=== PATIENT | female | born 1990 | race Caucasian/White ===

== ENCOUNTER → 2016-12-05 | Outpatient (REF) ==
[~2016-12-05] MED LIST: FERROUS SULFAT325 MG PO; IBU600 MG PO; PERCOCET 325 MG1 TA2 PO; PRENATAL VITAMI1 TA5 PO; VISTARIL50 MG PO
== END ==
LOC: WSOH 09:49
DX: Z01.89 Encounter for other specified special examinations (principal)
CPT/HCPCS: G0463

== ENCOUNTER 2017-10-16 22:56 | Emergency (ER) | payer OTHER ==
[~2017-10-16] VITALS: Ht 162.6 cm; Wt 70.5 kg
[2017-10-16 23:01] VITALS: BP 138/81; PULSE 131; TEMP 97.4
[2017-10-17] MEDS ORDERED: OMNICEF 300MG300 MG PO (01:15)
[2017-10-17] MEDS ORDERED: NORCO 325 MG-51 TAB PO (01:15)
== END 2017-10-17 01:45 | disposition home or self-care (01) ==
LOC: COL.ER 22:56
DX: S31.119A Laceration without foreign body of abdominal wall, unspecified quadrant without penetration into peritoneal cavity, initial encounter (principal); F17.210 Nicotine dependence, cigarettes, uncomplicated; Z23 Encounter for immunization; W26.8XXA Contact with other sharp object(s), not elsewhere classified, initial encounter; Y92.009 Unspecified place in unspecified non-institutional (private) residence as the place of occurrence of the external cause

== ENCOUNTER 2017-10-28 18:52 | Emergency (ER) | payer OTHER ==
[~2017-10-28 18:52] MED LIST changes: +NORCO 325 MG-51 TAB PO; +OMNICEF 300MG300 MG PO
[2017-10-28 19:00] VITALS: BP 118/75; PULSE 94; TEMP 99.1
== END 2017-10-28 19:04 | disposition home or self-care (01) ==
LOC: COL.ER 18:52
DX: S31.119D Laceration without foreign body of abdominal wall, unspecified quadrant without penetration into peritoneal cavity, subsequent encounter (principal); X58.XXXD Exposure to other specified factors, subsequent encounter

== ENCOUNTER → 2019-07-27 | Outpatient (CLI) | payer OTHER | LOC: MHCPAIN 08:50 | DX: M79.18 Myalgia, other site (principal) | CPT/HCPCS: G0463 ==

== ENCOUNTER → 2019-08-02 | Outpatient (CLI) | payer OTHER | LOC: MHCPAIN 08:17 | DX: M79.18 Myalgia, other site (principal) | CPT/HCPCS: J1040 ==

== ENCOUNTER → 2020-01-11 | Outpatient (CLI) | payer OTHER | LOC: MHCPAIN 15:12 | DX: M25.512 Pain in left shoulder (principal); M54.6 Pain in thoracic spine; M54.5 Low back pain; M54.2 Cervicalgia; M79.18 Myalgia, other site | CPT/HCPCS: G0463; J1040 ==

== ENCOUNTER 2020-02-07 19:32 | Emergency (ER) | payer OTHER ==
[~2020-02-07] VITALS: Ht 162.6 cm; Wt 72.7 kg
[2020-02-07 19:52] VITALS: TEMP 98
[2020-02-07] MEDS ORDERED: NORCO 325 MG-51 TAB PO (21:16)
[2020-02-07] MEDS ORDERED: CEPHALEXIN500 M1 PO (21:17)
[2020-02-07 22:16] VITALS: BP 117/86; PULSE 91
== END 2020-02-07 22:16 | disposition home or self-care (01) ==
LOC: COL.ER 19:32
DX: S62.305A Unspecified fracture of fourth metacarpal bone, left hand, initial encounter for closed fracture (principal); S62.621A Displaced fracture of middle phalanx of left index finger, initial encounter for closed fracture; S61.315A Laceration without foreign body of left ring finger with damage to nail, initial encounter; R40.2412 Glasgow coma scale score 13-15, at arrival to emergency department; V27.4XXA Motorcycle driver injured in collision with fixed or stationary object in traffic accident, initial encounter
CPT/HCPCS: J3010

== ENCOUNTER → 2020-02-08 | Outpatient (CLI) | payer OTHER ==
[~2020-02-08] MED LIST changes: +CEPHALEXIN500 M1 PO; +CLARITIN 1010 MG/TAB PO; +EFFEXOR 75M75 MG/TAB PO; +MONODOX100 PO; +MOTRIN 800800 MG/TAB PO; +NATURAL IRON65 MG; +NEURONTIN300 MG/CAP PO; +VENLAFAXINE225 MG PO; +VITAMIN D31000 I1 PO
== END ==
LOC: COL.LAB 08:00
DX: Z20.828 Contact with and (suspected) exposure to other viral communicable diseases (principal)

== ENCOUNTER 2020-02-13 10:59 | Day surgery (SDC) | payer OTHER ==
[~2020-02-13] VITALS: Ht 162.6 cm; Wt 80.5 kg
[~2020-02-13 10:59] MED LIST changes: -CLARITIN 1010 MG/TAB PO; -EFFEXOR 75M75 MG/TAB PO; -MONODOX100 PO; -MOTRIN 800800 MG/TAB PO; -NATURAL IRON65 MG; -NEURONTIN300 MG/CAP PO; -VENLAFAXINE225 MG PO; -VITAMIN D31000 I1 PO
[2020-02-13 11:35] VITALS: BP 130/82; PULSE 85; TEMP 98.4
[2020-02-13] MEDS ORDERED: NEURONTIN300 MG/CAP PO (11:43)
[2020-02-13] MEDS ORDERED: VENLAFAXINE225 MG PO (11:45)
[2020-02-13] MEDS ORDERED: EFFEXOR 75M75 MG/TAB PO (11:46)
[2020-02-13] MEDS ORDERED: MONODOX100 PO (11:46)
[2020-02-13] MEDS ORDERED: NATURAL IRON65 MG (11:47)
[2020-02-13] MEDS ORDERED: VITAMIN D31000 I1 PO (11:47)
[2020-02-13] MEDS ORDERED: CLARITIN 1010 MG/TAB PO (11:48)
[2020-02-13] MEDS ORDERED: MOTRIN 800800 MG/TAB PO (11:49)
[2020-02-13] MEDS ORDERED: NORCO 325 MG-51 TAB PO (11:49)
--- NOTE | 2020-02-13 11:51 | NUR ---
TO ELIECER AT 1113- CALL LIGHT IN REACH FRIEND ROBERT AT BEDSIDE.
[2020-02-13 13:39] VITALS: BP 124/88; PULSE 92
--- NOTE | 2020-02-13 13:39 | NUR ---
TO RM 6 PER CART FROM OR. ALERT, BUT RESTLESS AND C/O PAIN OF R HAND THROBBING. ELEVATED ARM ON PILLOW. DENIES NAUSEA AT CURRENT TIME. OPERATIVE ARM SPLINTED WITH PINS OF INDEX FINGER.
[2020-02-13 13:55] VITALS: BP 121/81; PULSE 82
--- NOTE | 2020-02-13 13:55 | NUR ---
RECEIVED WATER AND CRACKERS. CONTINUES TO REST AT TIMES AND THEN C/O EXTREME PAIN.
[2020-02-13 14:10] VITALS: BP 120/82; PULSE 76
--- NOTE | 2020-02-13 14:15 | NUR ---
RECEIVED NORCO 5MG 1 TAB. AMBULATED TO BATHROOM. AMBULATED BACK TO BED. OFFICE CALLED CONCERNING A SCRIPT UPON DISCHARGE FOR PAIN. PATIENTS FRIEND TOOK HER PHONE AND HER CLOTHS WHEN HE LEFT.
[2020-02-13 14:25] VITALS: BP 122/86; PULSE 68
--- NOTE | 2020-02-13 14:25 | NUR ---
CONTINUES TO C/O PAIN AND STATES SHE WANTS TO GO HOME.
--- NOTE | 2020-02-13 15:00 | NUR ---
RECEIVED MORPHINBE 2MG IV FOR PAIN 06/02. CALLED MOTHER TO CALL FRIEND FOR RIDE HOME
--- NOTE | 2020-02-13 15:05 | NUR ---
RECEIVED DISCHARGE INSTRUCTIONS AND VERBALIZED UNDERSTANDING. DISCONTINUED IV AND INT- CATHETER INTACT. BROUGHT PATIENT HER CLOTHS FROM FRIEND AND GETTING DRESSED.
--- NOTE | 2020-02-13 15:15 | NUR ---
DR MCCAULEY BROUGHT SCRIPT. MADE COPY AND GAVE PATIENT THE SCRIPT
--- NOTE | 2020-02-13 15:22 | NUR ---
DISCHARGED PER BY NURSING STAFF TO PRIVATE CAR IN CARE OF FRIEND ROBERT.
== END 2020-02-13 15:40 | disposition home or self-care (01) ==
LOC: SDCO 10:59
DX: S62.631A Displaced fracture of distal phalanx of left index finger, initial encounter for closed fracture (principal); S62.621A Displaced fracture of middle phalanx of left index finger, initial encounter for closed fracture; V29.9XXA Motorcycle rider (driver) (passenger) injured in unspecified traffic accident, initial encounter; Y92.410 Unspecified street and highway as the place of occurrence of the external cause; F43.10 Post-traumatic stress disorder, unspecified; F90.9 Attention-deficit hyperactivity disorder, unspecified type; Z79.899 Other long term (current) drug therapy; Z88.0 Allergy status to penicillin
CPT/HCPCS: J1100; J2250; J2270; J2704; J2795; J3010; J7120

== ENCOUNTER 2020-03-05 16:41 | Emergency (ER) | payer OTHER ==
[~2020-03-05] VITALS: Ht 162.6 cm; Wt 78.2 kg
[~2020-03-05 16:41] MED LIST changes: +CLARITIN 1010 MG/TAB PO; +EFFEXOR 75M75 MG/TAB PO; +MONODOX100 PO; +MOTRIN 800800 MG/TAB PO; +NATURAL IRON65 MG; +NEURONTIN300 MG/CAP PO; +VENLAFAXINE225 MG PO; +VITAMIN D31000 I1 PO
[2020-03-05 16:48] VITALS: BP 138/100; TEMP 97.5
[2020-03-05 19:41] VITALS: PULSE 99
== END 2020-03-05 19:41 | disposition home or self-care (01) ==
LOC: COL.ER 16:41
DX: S62.601D Fracture of unspecified phalanx of left index finger, subsequent encounter for fracture with routine healing (principal); F17.210 Nicotine dependence, cigarettes, uncomplicated; Z90.710 Acquired absence of both cervix and uterus; Z90.89 Acquired absence of other organs; Z90.49 Acquired absence of other specified parts of digestive tract; V29.9XXD Motorcycle rider (driver) (passenger) injured in unspecified traffic accident, subsequent encounter
CPT/HCPCS: J1885

== ENCOUNTER → 2020-05-15 | Outpatient (CLI) | payer OTHER | LOC: MHCPAIN 14:32 | DX: M79.18 Myalgia, other site (principal); G89.29 Other chronic pain; M54.2 Cervicalgia; M54.6 Pain in thoracic spine; M54.5 Low back pain | CPT/HCPCS: G0463; J1040 ==

== ENCOUNTER 2020-09-04 18:06 | Emergency (ER) | payer OTHER ==
[~2020-09-04] VITALS: Ht 162.6 cm; Wt 83.7 kg
[2020-09-04 18:21] VITALS: BP 109/67; PULSE 83; TEMP 98.1
== END 2020-09-04 18:30 | disposition left against medical advice (07) ==
LOC: COL.ER 18:06
DX: O26.891 Other specified pregnancy related conditions, first trimester (principal); R10.11 Right upper quadrant pain; R10.31 Right lower quadrant pain; Z3A.14 14 weeks gestation of pregnancy; Z88.0 Allergy status to penicillin; Z88.6 Allergy status to analgesic agent

== ENCOUNTER 2020-10-17 13:14 | Emergency (ER) | payer OTHER ==
[~2020-10-17] VITALS: Ht 162.6 cm; Wt 82.7 kg
[2020-10-17 13:24] VITALS: TEMP 98
[2020-10-17 16:30] VITALS: BP 119/77; PULSE 82
[2020-10-18 10:28] LABS: COLLECTION METHOD CLEAN CATCH
[2020-10-18 11:58] LABS: ALBUMIN 4.4 gm/dL (3.5-5.0); BILIRUBIN,TOTAL 0.3 mg/dL (0.0-1.0); C-REACTIVE PROTEIN 1.4 mg/dL (0.0-0.9); CALCIUM 9.8 mg/dL (8.4-10.2); CREATININE, serum 0.47 (0.52-1.25); POTASSIUM 3.9 mmol/L (3.4-5.0); TOTAL PROTEIN 8.1 gm/dL (6.4-8.2)
[2020-10-18 11:58] LABS: URINE COLOR Yellow
[2020-10-18 11:59] LABS: PH 6 (5-8); SQUAMOUS EPITHELIAL 0-2 /hpf; URINE APPEARANCE Clear; URINE BACTERIA Rare /hpf; URINE BILIRUBIN Negative (NEGATIVE); URINE BLOOD 2+ (NEGATIVE); URINE GLUCOSE Negative (NEGATIVE); URINE KETONE Negative (NEGATIVE); URINE LEUKOCYTE ESTERASE Negative (NEGATIVE); URINE NITRATE Negative (NEGATIVE); URINE PROTEIN(semi-quant) Negative (NEGATIVE); URINE UROBILINOGEN Negative (NEGATIVE)
[2020-10-18 15:43] LABS: BASO % 0.2 % (0.0-2.0); EOS # 0.1 (0.0-0.7); EOS % 0.6 % (0-4.0); GRAN # 10.5 (1.4-6.5); GRAN % 75.4 % (42.2-75.2); HEMATOCRIT 35.8 % (37.0-47.0); LYMPH # 2.4 (1.2-3.4); LYMPH % 17.2 % (20.0-51.0); MEAN CELL VOLUME 93 fl (80.0-100.0); MEAN CORPUSCULAR HEMOGLOBIN 31 pg (27.0-31.0); MEAN CORPUSCULAR HGB CONC 34 g/dl (33.0-37.0); MEAN PLATELET VOLUME 9.6 fl (7.4-10.4); MONO # 0.8 (0.1-0.6); PLATELET COUNT 302 K/mm3 (130-400); RED BLOOD COUNT 3.87 M/mm3 (4.10-5.30)
[2021-04-18] MEDS ORDERED: FLEXERIL 1010 MG/TAB PO (17:25)
== END 2020-10-17 16:36 | disposition home or self-care (01) ==
LOC: COL.ER 13:14
PROVIDERS: Emergency Medicine
DX: N12 Tubulo-interstitial nephritis, not specified as acute or chronic (principal); Z90.49 Acquired absence of other specified parts of digestive tract
CPT/HCPCS: J0696; J2270; J7030

== ENCOUNTER → 2021-07-04 | Outpatient (CLI) | payer OTHER ==
[~2021-07-04] MED LIST changes: +FLEXERIL 1010 MG/TAB PO
== END ==
LOC: MHCPAIN 08:57
DX: M79.18 Myalgia, other site (principal); M54.2 Cervicalgia; M54.6 Pain in thoracic spine; M54.50 Low back pain, unspecified
CPT/HCPCS: G0463; J1040

== ENCOUNTER → 2021-10-02 | Outpatient (CLI) | payer OTHER | LOC: MHCPAIN 09:31 | DX: M79.18 Myalgia, other site (principal); M54.2 Cervicalgia; M54.6 Pain in thoracic spine | CPT/HCPCS: G0463 ==

== ENCOUNTER 2021-10-28 16:11 | Emergency (ER) | payer OTHER ==
[~2021-10-28] VITALS: Ht 162.6 cm; Wt 77.3 kg
[2021-10-28 17:28] LABS: COLLECTION METHOD CLEAN CATCH
[2021-10-28 17:40] LABS: BASO % 0.2 % (0.0-2.0); EOS # 0.1 K/mm3 (0.0-0.7); EOS % 0.6 % (0.0-4.0); GRAN # 8.3 K/mm3 (1.4-6.5); GRAN % 72.5 % (42.2-75.2); HEMOGLOBIN 12.1 g/dl (12.5-16.0); LYMPH # 2.3 K/mm3 (1.2-3.4); LYMPH % 20.2 % (20.0-51.0); MEAN CELL VOLUME 90 fl (80.0-100.0); MEAN CORPUSCULAR HEMOGLOBIN 31 pg (27-31); MEAN CORPUSCULAR HGB CONC 34 g/dl (33.0-37.0); MEAN PLATELET VOLUME 9.5 fl (7.4-10.4); MONO # 0.7 K/mm3 (0.1-0.6); MONO % 6.2 % (1.7-9.3); PLATELET COUNT 349 K/mm3 (130-400); RED BLOOD COUNT 3.93 M/mm3 (4.10-5.30); REDCELL DISTRIBUTION WIDTH-CV 12.6 % (11.5-14.5)
[2021-10-28 17:47] LABS: HEMATOCRIT 35.4 % (37.0-47.0)
[2021-10-28 17:49] LABS: MUCOUS Present (NOT PRESENT); PH 6 (5-8); SQUAMOUS EPITHELIAL 0-2 /hpf (0-10); URINE APPEARANCE Clear (CLEAR/HAZY); URINE BACTERIA None Seen /hpf (NONE SEEN); URINE BILIRUBIN Negative (NEGATIVE); URINE BLOOD 1+ (NEGATIVE); URINE COLOR Yellow (YELLOW); URINE GLUCOSE Negative (NEGATIVE); URINE KETONE Negative (NEGATIVE); URINE LEUKOCYTE ESTERASE Negative (NEGATIVE); URINE NITRATE Negative (NEGATIVE); URINE PROTEIN(semi-quant) Negative (NEGATIVE); URINE UROBILINOGEN Negative (NEGATIVE)
[2021-10-28 17:51] LABS: ALANINE AMINOTRANSFERASE 24 U/L (0-55); ALBUMIN 4.2 gm/dL (3.5-5.0); ALKALINE PHOSPHATASE 67 U/L (40-150); ANION GAP 9 mmol/L (7-16); AST,SGOT 21 U/L (5-34); BILIRUBIN,TOTAL 0.2 mg/dL (0.2-1.2); BLOOD UREA NITROGEN 16 mg/dL (7-19); CALCIUM 9.1 mg/dL (8.4-10.2); CARBON DIOXIDE 22 mmol/L (22-29); CHLORIDE 107 mmol/L (98-107); CREATININE, serum 0.71 mg/dL (0.57-1.11); GLUCOSE 92 mg/dL (70-99); POTASSIUM 4.1 mmol/L (3.5-4.5); SODIUM 138 mmol/L (136-145); TOTAL PROTEIN 7.7 gm/dL (6.2-8.1)
[2021-10-28 17:53] LABS: ACETAMINOPHEN < 1.0 ug/mL (10-30); ALCOHOL(ethanol),MEDICAL < 10 mg/dL (0-10); SALICYLATE < 5.0 mg/dL (15.0-30.0)
[2021-10-28 17:56] LABS: TRICYCLIC ANTIDEPRESS URINE NEGATIVE
[2021-10-28 18:12] LABS: TSH w REFLEX 0.903 uIU/mL (0.350-4.940)
[2021-10-28] MEDS ORDERED: ANTI-ANXIETY (18:48)
[2021-10-28] MEDS ORDERED: ADHD (18:48)
[2021-10-28] MEDS ORDERED: ANTI-ANXIETY PO (18:49)
[2021-10-29 20:02] VITALS: BP 131/90; PULSE 88; TEMP 98.9
== END 2021-10-29 20:02 ==
LOC: COL.ER 16:11
PROVIDERS: Nurse Practitioner
DX: F29 Unspecified psychosis not due to a substance or known physiological condition (principal); F17.210 Nicotine dependence, cigarettes, uncomplicated; Z20.822 Contact with and (suspected) exposure to COVID-19

== ENCOUNTER 2022-06-24 20:43 | Emergency (ER) | payer OTHER ==
[~2022-06-24] VITALS: Ht 162.6 cm; Wt 77.3 kg
[~2022-06-24 20:43] MED LIST changes: +ADHD; +ANTI-ANXIETY; +ANTI-ANXIETY PO; +DOXYCYCLINE 10100 MG PO
[2022-06-24 20:53] VITALS: TEMP 98.1
[2022-06-24 22:25] LABS: BASO % 0.3 % (0.0-2.0); EOS # 0.1 K/mm3 (0.0-0.7); EOS % 0.6 % (0.0-4.0); GRAN # 10.5 K/mm3 (1.4-6.5); GRAN % 76.4 % (42.2-75.2); HEMOGLOBIN 11.3 g/dl (12.5-16.0); LYMPH # 2.3 K/mm3 (1.2-3.4); LYMPH % 16.4 % (20.0-51.0); MEAN CELL VOLUME 85 fl (80.0-100.0); MEAN CORPUSCULAR HEMOGLOBIN 29 pg (27-31); MEAN CORPUSCULAR HGB CONC 33 g/dl (33.0-37.0); MEAN PLATELET VOLUME 9.6 fl (7.4-10.4); MONO # 0.8 K/mm3 (0.1-0.6); MONO % 5.8 % (1.7-9.3); PLATELET COUNT 303 K/mm3 (130-400); RED BLOOD COUNT 3.96 M/mm3 (4.10-5.30); REDCELL DISTRIBUTION WIDTH-CV 12.9 % (11.5-14.5)
[2022-06-24 22:27] LABS: HEMATOCRIT 33.8 % (37.0-47.0)
[2022-06-24 22:36] LABS: ALANINE AMINOTRANSFERASE 13 U/L (0-55); ALBUMIN 3.7 gm/dL (3.5-5.0); ALKALINE PHOSPHATASE 54 U/L (40-150); ANION GAP 9 mmol/L (7-16); AST,SGOT 15 U/L (5-34); BILIRUBIN,TOTAL 0.3 mg/dL (0.2-1.2); BLOOD UREA NITROGEN 7 mg/dL (7-19); CALCIUM 8.5 mg/dL (8.4-10.2); CARBON DIOXIDE 23 mmol/L (22-29); CHLORIDE 111 mmol/L (98-107); CREATININE, serum 0.78 mg/dL (0.57-1.11); GLUCOSE 93 mg/dL (70-99); POTASSIUM 3.9 mmol/L (3.5-4.5); SODIUM 143 mmol/L (136-145); TOTAL PROTEIN 6.9 gm/dL (6.2-8.1)
[2022-06-24 22:37] LABS: ALCOHOL(ethanol),MEDICAL < 10 mg/dL (0-10)
[2022-06-24 22:42] LABS: COLLECTION METHOD CLEAN CATCH
[2022-06-24 22:55] LABS: MUCOUS Present (NOT PRESENT); SQUAMOUS EPITHELIAL 0-2 /hpf (0-10); URINE BACTERIA Rare /hpf (NONE SEEN)
[2022-06-24 23:01] LABS: TRICYCLIC ANTIDEPRESS URINE NEGATIVE
[2022-06-24 23:04] LABS: PH 5.5 (5.0-8.5); URINE APPEARANCE Clear (CLEAR/HAZY); URINE BLOOD 2+ (NEGATIVE); URINE COLOR Yellow (YELLOW); URINE GLUCOSE Negative (NEGATIVE); URINE KETONE TRACE (NEGATIVE); URINE NITRATE Negative (NEGATIVE); URINE PROTEIN(semi-quant) 1+ (NEGATIVE); URINE UROBILINOGEN 0.2 E.U/dL (0.2-1.0)
[2022-06-24 23:38] VITALS: BP 97/68; PULSE 78
== END 2022-06-24 23:45 | disposition home or self-care (01) ==
LOC: COL.ER 20:43
PROVIDERS: Nurse Practitioner
DX: R55 Syncope and collapse (principal)
CPT/HCPCS: J7030